=== PATIENT | female | born 1995 | race Caucasian/White ===

== ENCOUNTER → 2017-04-02 | Outpatient (CLI) | payer OTHER ==
--- NOTE | 2017-04-02 10:54 | DI ---
Indication: ITS.REASON: R10.11 Right upper quadrant pain PROCEDURE: US GALLBLADDER: Encounter: Initial Comparison: Gallbladder ultrasound dated November 15, 2015 Technique: Grayscale and color Doppler sonographic imaging of the right upper quadrant of the abdomen was performed. Findings: Hepatic parenchyma is homogeneous without evidence for focal mass. The gallbladder is normal. There is no wall thickening, pericholecystic fluid, sonographic Kelsey's sign or cholelithiasis. Both the intra and extrahepatic biliary system are of normal caliber with the common duct measuring 2 mm in dimension. Visualized portions of the head and body of the pancreas are unremarkable. The right kidney is present with possible mild collecting system dilatation. The right kidney measures 10.8 cm in length. Impression: Normal gallbladder. Mild right hydronephrosis versus prominent renal pelvis. The overall appearance is similar to the comparison. .
== END ==
LOC: IMA 09:13
PROVIDERS: ATTEND Nurse Practitioner Family
DX: R93.8 Abnormal findings on diagnostic imaging of other specified body structures (principal); R10.11 Right upper quadrant pain